=== PATIENT | female | born 2000 | race Caucasian/White ===

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

== ENCOUNTER 2020-01-16 09:08 | Emergency (ER) | payer BC, OTHER ==
--- NOTE | 2020-01-16 10:29 | EDM.PDOC ---
ED HPI GENERAL MEDICAL PROBLEM - General Chief Complaint: ENT Problem Stated Complaint: INFLUENZA Time Seen by Provider: 01/16/20 09:17 Source of Information: Reports: Patient History Limitations: Reports: No Limitations - History of Present Illness INITIAL COMMENTS - FREE TEXT/NARRATIVE: diagnosed with influenza about 2 weeks ago and had it treated , felt better but now has sore throat, cough and body aches and pains for the past 2-3 days denies any contact with person with COVID that she knows Onset: Gradual Duration: Day(s): (2), Getting Worse Quality: Reports: Ache, Burning Severity: Moderate Improves with: Reports: Cold Therapy Associated Symptoms: Reports: Cough, Fever/Chills, Headaches, Malaise 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 Pain Score (Numeric/FACES): 3 - Related Data Allergies Allergy/AdvReac Type Severity Reaction Status Date / Time Penicillins Allergy Hives Verified 01/16/20 10:14 Home Meds: Home Meds Benzonatate [Tessalon Perle] 100 mg PO TID #30 capsule 01/16/20 [Rx] Clindamycin HCl 300 mg PO TID #30 capsule 01/16/20 [Rx] guaiFENesin [Mucinex] 600 mg PO BID #20 tab.er 01/16/20 [Rx] Past Medical History - Past Health History Medical/Surgical History: Denies Medical/Surgical History Social & Family History - Tobacco Use Smoking Status *Q: Never Smoker - Caffeine Use Caffeine Use: Reports: None - Recreational Drug Use Recreational Drug Use: No ED ROS ENT - Review of Systems Review Of Systems: Comprehensive ROS is negative, except as noted in HPI. Constitutional: Reports: Fever, Chills, Malaise, Weakness HEENT: Reports: Throat Pain, Throat Swelling Respiratory: Reports: Wheezing, Cough Cardiovascular: Reports: No Symptoms Endocrine: Reports: Fatigue : Reports: No Symptoms Musculoskeletal: Reports: Joint Pain, Muscle Pain Skin: Reports: No Symptoms Neurological: Reports: No Symptoms Immunologic: Reports: No Symptoms ED EXAM, ENT - Physical Exam Exam: See Below Exam Limited By: No Limitations General Appearance: Alert, WD/WN, No Apparent Distress Eye Exam: Bilateral Eye: EOMI Ears: Normal External Exam Nose: Normal Inspection Mouth/Throat: Hoarse Voice, Tonsillar Erythema, Tonsillar Swelling Head: Atraumatic Neck: Supple, Non-Tender Respiratory/Chest: Normal Breath Sounds, Rhonchi, Wheezing (left side) Cardiovascular: Regular Rate, Rhythm GI/Abdominal: Soft, Non-Tender Neurological: Alert, Oriented, CN II-XII Intact Course - Vital Signs Last Recorded V/S: Last Vital Signs Temp 36.9 C 01/16/20 09:15 Pulse 97 01/16/20 09:15 Resp 16 01/16/20 09:15 BP 107/64 01/16/20 09:15 Pulse Ox 100 01/16/20 09:15 - Orders/Labs/Meds Orders: Active Orders 24 hr Category Date Time Status Chest 2V [CR] Stat Exams 01/16/20 09:37 Taken CORONAVIRUS COVID-19, EMILY Routine Lab 01/16/20 09:45 Received Isolation [COMM] Routine Oth 01/16/20 09:36 Ordered - Re-Assessments/Exams Free Text/Narrative Re-Assessment/Exam: 01/16/20 10:32 Cxray reviewed suggestive of bronchitis , pt has strep pharyngitis and being treated for such should cover for bronchitis will FU with call to PCP if needed Departure - Departure Time of Disposition: 10:30 Disposition: Home, Self-Care 01 Condition: Good Clinical Impression: Streptococcal pharyngitis, Cough - Discharge Information *PRESCRIPTION DRUG MONITORING PROGRAM REVIEWED*: Not Applicable *COPY OF PRESCRIPTION DRUG MONITORING REPORT IN PATIENT GILES: Not Applicable Prescriptions: Benzonatate [Tessalon Perle] 100 mg PO TID #30 capsule Clindamycin HCl 300 mg PO TID #30 capsule guaiFENesin [Mucinex] 600 mg PO BID #20 tab.er Instructions: Strep Throat, [id number] Referrals: PCP,None [Primary Care Provider] - Forms: ED Department Discharge Additional Instructions: Increase fluid intake Monitor for any signs of pneumonia : shortness of breath , persistent fever , 100.4 and call your doctor Sepsis Event Note - Evaluation Sepsis Screening Result: No Definite Risk - Focused Exam Vital Signs: Vital Signs Temp Pulse Resp BP Pulse Ox 01/16/20 09:15 36.9 C 97 16 107/64 100 Date Exam was Performed: 01/16/20 Time Exam was Performed: 11:21 - My Orders Last 24 Hours: My Active Orders 01/16/20 09:36 Isolation [COMM] Routine 01/16/20 09:37 Chest 2V [CR] Stat 01/16/20 09:45 CORONAVIRUS COVID-19, EMILY Routine - Assessment/Plan Last 24 Hours: My Active Orders 01/16/20 09:36 Isolation [COMM] Routine 01/16/20 09:37 Chest 2V [CR] Stat 01/16/20 09:45 CORONAVIRUS COVID-19, EMILY Routine
[2020-01-16 11:22] VITALS: BP 122/63; PULSE 71
--- NOTE | 2020-01-18 10:13 | CR ---
INDICATION: Cough, fever, shortness of breath. CHEST, 2 VIEWS: PA and lateral views of the chest were obtained 01/16/20 - no comparisons. No consolidating pneumonia or effusion was identified. However, there is noted minimal bronchial wall cuffing at the lung bases, which may be on the basis of active peribronchial disease, and should be correlated clinically. Tiny nodular density at the right lower lung field may represent post granulomatous change. Very minimal dextroconcave scoliosis at the lower thoracic spine is suggested with the heart and mediastinum and bony thorax otherwise unremarkable. IMPRESSION: 1. Bronchial wall cuffing, which could be on the basis of active peribronchial disease and should be correlated clinically. 2. Minimal scoliosis. MTDD
== END 2020-01-16 10:40 | disposition home or self-care (01) ==
LOC: FB.ED 09:08
DX: J02.0 Streptococcal pharyngitis (principal); Z88.0 Allergy status to penicillin; Z20.828 Contact with and (suspected) exposure to other viral communicable diseases
CPT/HCPCS: 71046; 87804; 87804-59; 87880-QW; 99283-25; U0002

== ENCOUNTER 2021-08-02 06:31 | Emergency (ER) | payer BC ==
[2021-08-02] MEDS ORDERED: Sodium Chloride 0.9% 10 ML Syringe FLUSH PRN (06:59)
[2021-08-02] MEDS ORDERED: Ondansetron 4 MG/2 ML SDV IVPUSH ONE (06:59)
[2021-08-02] MEDS ORDERED: Sodium Chloride 0.9% 1,000 ML IV SCH (07:00)
[2021-08-02 07:11] VITALS: BP 116/76; PULSE 87
--- NOTE | 2021-08-02 08:06 | EDM.PDOC ---
ED HPI GENERAL MEDICAL PROBLEM - General Chief Complaint: Gastrointestinal Problem Stated Complaint: NAUSEA Time Seen by Provider: 08/02/21 06:45 Source of Information: Reports: Patient, Family History Limitations: Reports: No Limitations - History of Present Illness INITIAL COMMENTS - FREE TEXT/NARRATIVE: Patient is a 21 at unknown AOG presented to the ED because of nausea and vomiting for 3 days. She said she can't keep anything down and is feeling weak. There is no fever, chills, cough/cold. There is no diarrhea and no UTI s/s. Benjamin having any vaginal bleeding and discharge. 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: Reports: Social & Family History - Tobacco Use Tobacco Use Status *Q: Never Tobacco User - Caffeine Use Caffeine Use: Reports: None - Recreational Drug Use Recreational Drug Use: No ED ROS GENERAL - Review of Systems Review Of Systems: See Below Constitutional: Reports: No Symptoms HEENT: Reports: No Symptoms Respiratory: Reports: No Symptoms Cardiovascular: Reports: No Symptoms Endocrine: Reports: No Symptoms GI/Abdominal: Reports: Nausea, Vomiting : Reports: No Symptoms Musculoskeletal: Reports: No Symptoms Skin: Reports: No Symptoms Neurological: Reports: No Symptoms Psychiatric: Reports: No Symptoms ED EXAM, GI/ABD - Physical Exam Exam: See Below Exam Limited By: No Limitations General Appearance: Alert, No Apparent Distress Ears: Normal External Exam, Normal Canal, Hearing Grossly Normal Nose: Normal Inspection, Normal Mucosa, No Blood Throat/Mouth: Normal Inspection, Normal Lips, Normal Teeth, Normal Oropharynx Head: Atraumatic, Normocephalic Neck: Normal Inspection, Supple, Non-Tender, Full Range of Motion Respiratory/Chest: No Respiratory Distress, Lungs Clear, Normal Breath Sounds, No Accessory Muscle Use, Chest Non-Tender Cardiovascular: Normal Peripheral Pulses, Regular Rate, Rhythm, No Edema, No Gallop GI/Abdominal Exam: Normal Bowel Sounds, Soft, Non-Tender, No Organomegaly, No Distention, No Abnormal Bruit, No Mass Back Exam: Normal Inspection, Full Range of Motion Extremities: Normal Inspection, Normal Range of Motion, Non-Tender, No Pedal Edema, Normal Capillary Refill Neurological: Alert Psychiatric: Normal Affect Course - Vital Signs Text/Narrative:: Lab result was reviewed and discussed with patient and her NS 1 L bolus Zofran 4 mg IV x1 Last Recorded V/S: Last Vital Signs Temp 35.8 C L 08/02/21 06:40 Pulse 87 08/02/21 06:40 Resp 18 08/02/21 06:40 BP 116/76 08/02/21 06:40 Pulse Ox 100 08/02/21 06:40 - Orders/Labs/Meds Orders: Active Orders 24 hr Category Date Time Status CULTURE URINE [RM] Stat Lab 08/02/21 08:30 Results Saline Lock Insert [OM.PC] Routine Oth 08/02/21 06:59 Ordered Labs: Laboratory Tests 08/02/21 08/02/21 08/02/21 Range/Units 07:30 07:30 08:36 WBC 7.0 (3.0-10.3) x10-3/uL RBC 4.29 (3.60-5.20) x10(6)uL Hgb 12.5 (11.4-15.5) g/dL Hct 38.6 (34.2-48.2) % MCV 90.1 (76.7-100.5) fL MCH 29.2 (23.9-33.9) pg MCHC 32.4 (31.9-34.8) g/dL RDW 12.9 (12.3-16.5) % Plt Count 187 (151-488) x10(3)uL MPV 8.2 (7.1-12.4) fL Neut % (Auto) 77.5 H (30.8-76.2) % Lymph % (Auto) 16.3 L (18.4-52.1) % [place]olls % (Auto) 5.3 (4.4-15.7) % Eos % (Auto) 0.3 L (0.6-8.1) % Baso % (Auto) 0.6 (0.2-1.5) % Neut # (Auto) 5.4 (1.5-6.3) x10-3/uL Lymph # (Auto) 1.1 (1.0-4.4) x10-3/uL [place]oll[place] # (Auto) 0.4 (0.3-1.0) x10-3/uL Eos # (Auto) 0.0 (0.0-0.8) x10-3/uL Baso # (Auto) 0.0 (0.0-0.1) x10-3/uL Sodium 139 (135-145) mmol/L Potassium 4.5 (3.5-5.3) mmol/L Chloride 105 (100-110) mmol/L Carbon Dioxide 23 (21-32) mmol/L BUN 12 (7-18) mg/dL Creatinine 0.6 (0.55-1.02) mg/dL Est Cr Clr Drug Dosing 126.38 mL/min Estimated GFR (MDRD) > 60 (>60) BUN/Creatinine Ratio 20.0 (9-20) Glucose 71 L (80-116) mg/dL Calcium 8.8 (8.6-10.2) mg/dL Urine Color Yellow (YELLOW) Urine Appearance Cloudy (CLEAR) Urine pH 5.0 (5.0-6.5) Ur Specific [place] 1.030 H (1.010-1.025) Urine Protein Trace (NEGATIVE) mg/dL Urine Glucose (UA) Normal (NORMAL) mg/dL Urine Ketones 150 H (NEGATIVE) mg/dL Urine Occult Blood Negative (NEGATIVE) Urine Nitrite Negative (NEGATIVE) Urine Bilirubin Negative (NEGATIVE) Urine Urobilinogen 1 H (NEGATIVE) mg/dL Ur Leukocyte Esterase Large H (NEGATIVE) Urine RBC 5-10 H (0-5) Urine WBC 10-20 H (0-5) Ur Squamous Epith Cells Moderate H (NS,R,O) Urine Bacteria Many H (NS) Meds: Medications Discontinued Medications Generic Name Dose Route Start Last Admin Trade Name Freq PRN Reason Stop Dose Admin Sodium Chloride 1,000 mls @ 999 mls/hr 08/02/21 07:00 08/02/21 07:18 Normal Saline IV 999 mls/hr ASDIRECTED PAMELA Administration Ondansetron HCl 4 mg 08/02/21 06:59 08/02/21 07:18 Ondansetron 4 Mg/2 Ml Sdv IVPUSH 08/02/21 07:00 4 mg ONETIME ONE Administration Sodium Chloride 10 ml 08/02/21 06:59 08/02/21 07:19 Sodium Chloride 0.9% 10 Ml Syringe FLUSH 10 ml ASDIRECTED PRN Administration Keep Vein Open Departure - Departure Time of Disposition: 08:30 Disposition: Home, Self-Care 01 Condition: Good Clinical Impression: Nausea and vomiting during - Discharge Information Prescriptions: Nitrofurantoin Monohyd/M-Cryst [Macrobid 100 mg Capsule] 100 mg PO BID #10 capsule Ondansetron [Zofran ODT] 4 mg PO Q4H PRN #10 tab.dis PRN Reason: Nausea Instructions: Nausea and Vomiting, Adult, [id number], Urinary Tract Infection, Adult, [place] Diet Referrals: PCP,None [Primary Care Provider] - Forms: ED Department Discharge Additional Instructions: Please read discharge instructions on nausea and vomiting during Drink at least 2 liters of water daily Zofran ODT 4 mg every 4 hours as needed for nausea Macrobid 1 tablet twice daily for 5 days [place] diet then advance to a regular diet Keep your appointment for your visit Sepsis Event Note (ED) - Evaluation Sepsis Screening Result: No Definite Risk - My Orders Last 24 Hours: My Active Orders 08/02/21 06:59 Saline Lock Insert [OM.PC] Routine 08/02/21 08:30 CULTURE URINE [RM] Stat - Assessment/Plan Last 24 Hours: My Active Orders 08/02/21 06:59 Saline Lock Insert [OM.PC] Routine 08/02/21 08:30 CULTURE URINE [RM] Stat
== END 2021-08-02 09:16 | disposition home or self-care (01) ==
LOC: FB.ED 06:31
DX: O21.9 Vomiting of pregnancy, unspecified (principal); Z88.0 Allergy status to penicillin; Z3A.00 Weeks of gestation of pregnancy not specified
CPT/HCPCS: 36415; 80048; 81001; 85025; 87086; 96361; 96374; 99284-25; J2405; J7030